=== PATIENT | female | born 1960 | race Caucasian/White ===

== ENCOUNTER 2017-04-08 08:55 | Outpatient (CLI) ==
[2015-10-15 19:54] VITALS: BMI 32.1
--- NOTE | 2017-04-10 20:38 | MRI ---
EXAM: Cervical spine MRI without contrast. HISTORY: Neck pain with radiculopathy. COMPARISON: Cervical spine radiographs 01/20/2008. TECHNIQUE: Multiplanar, multisequence MR images were acquired of the cervical spine without contrast . FINDINGS: The craniocervical junction is unremarkable. There is focal hyperintense T2 signal in the dorsal mid ivonne. The pituitary gland is small. The cervical cord has normal signal intensity. The re is straightening of the usual cervical lordosis and there is osteophytosis with disc space narrowi ng at C3-4 and osteophytosis with disc space narrowing, degenerative endplate changes at C4-5 and C5- 6. Reactive bright STIR signal edema is present along the endplates at C4-5 and C5-6. Posterior dis c space narrowing is present at C6-7. The cervical vertebra are generally normal in height and intri nsic bone marrow signal. Minor mucosal thickening is present in the sphenoid sinus. There is fatty infiltration of the parotid glands bilaterally. There are no paravertebral masses. C2-3: The intervertebral disc is normal. There is mild left hypertrophic facet arthropathy without foraminal stenosis. C3-4: There is a posterior disc osteophyte complex and small left paracentral disc protrusion that m inimally indents the cervical cord although cerebrospinal fluid is preserved around the cord. Bilate ral uncovertebral hypertrophy is present, greater on the left and there is mild bilateral facet arthr opathy. There is mild left neural foraminal stenosis. No central canal stenosis is present. C4-5: There is a posterior disc osteophyte complex and bilateral uncovertebral hypertrophy. This ca uses mild to moderate left and mild right neural foraminal stenosis. There is mild spinal stenosis. AP diameter of the thecal sac is 9 mm. C5-6: There is a posterior disc osteophyte complex that is more prominent in the midline which mildl y indents the cervical cord. Bilateral uncovertebral hypertrophy is present and there is mild spinal stenosis and mild to moderate left and moderate right neural foraminal stenosis. AP diameter of the thecal sac is 8.2 mm. C6-7: There is a mild posterior disc osteophyte complex and minor left uncovertebral hypertrophy. T his causes minor left foraminal stenosis. IMPRESSION: 1. Mild to moderate cervical degenerative spondylosis most significant at C4-5 and C5-6 where there is bright STIR signal edema along the endplates and mild spinal stenosis. 2. Multilevel foraminal stenosis. Cervical CT myelography may be helpful to further define the osse ous anatomy.
== END 2017-04-08 08:56 | disposition home or self-care (01) ==
LOC: RAD 08:55
PROVIDERS: ATTEND Family Medicine
DX: M54.2 Cervicalgia (principal)

== ENCOUNTER 2017-04-12 06:26 | Outpatient (CLI) ==
[2015-10-15 19:54] VITALS: BMI 32.1
[2017-04-12] MEDS ORDERED: ATROPINE SULFATE PFS ONE (07:00)
[2017-04-12] MEDS ORDERED: DOBUTAMINE 250 ML IV ONE (07:00)
--- NOTE | 2017-04-13 10:34 | DOBSTECHO ---
Ordering Physician: ESSENCE LUCIO Date of Test: 04/12/17 Reason for Examination: CHEST PAIN Current Medications: LOSARTAN, TRAMADOL, GABAPENTIN, DICLOFENAC, ALBUTEROL, LIPITOR Height: 70" Weight: 230 LBS Target Heart Rate: 140/165 ST Segment Stage Time HR BPM BP mmhg Rhythm +/- Up Down Comments/Symptoms Control Sitting 63 136/94 SR X NONE Dobutamine 250mg/D5W 5cmg/KG/mn 10cmg/KG/mn 3" 100 148/86 SR X NONE 15cmg/KG/mn 2" 112 144/82 SR X NONE 20cmg/KG/mn 2" 129 148/74 SR X NONE 25cmg/KG/mn 1:53 133 156/68 SR X NONE 30cmg/KG/mn 35cmg/KG/mn 40cmg/KG/mn Time: 4" HR B/P Time: 6" HR B/P Time: HR B/P Recovery 99 138/80 Recovery 85 Recovery Total Time: 8:53 Maximum Heart Rate Reached: 133 Interpretation: 1. NO EVIDENCE OF ISCHEMIA BY ST-T WAVE 2. NO CHEST PAIN OR DISCOMFORT 3. NORMAL LEFT VENTRICULAR CONTRACTILITY--RESTING AND WITH DOBUTAMINE INFUSION MTDD
--- NOTE | 2017-04-13 10:38 | ECHOSTRESS ---
Date of Exam: 04/12/17 Ordering Physician: ESSENCE LUCIO Reason for Echo: CHEST PAIN, DOBUTAMINE STRESS TEST--NO ISCHEMIA M-Mode Normal Adult Results LV Dimensions Normal Adult Results AoV Opening excursions >1.6 LVEDD-base- 3.5-5.8 Ao root dimensions 2.0-3.7 LVESD-base- 3.1-4.6 L. Atrium dimensions 1.9-3.8 Post. Wall thickness 0.8-1.1 IV septum (thickness) 0.7-1.2 Post. Wall excursion 0.72-1.3 Septal motion Systolic motion R. Ventricular cavity 1.5-2.0 LVEF 60% Paradoxical septal wall motion 2-D: NORMAL LEFT VENTRICULAR CONTRACTILITY--RESTING AND WITH DOBUTAMINE INFUSION M-MODE: MV: AV: TV: PV: CHAMBER SIZE: WALL MOTION: NORMAL LEFT VENTRICULAR CONTRACTILITY--RESTING AND WITH DOBUTAMINE INFUSION PERICARDIUM: INTERPRETATION: 1. NORMAL LEFT VENTRICULAR CONTRACTILITY--RESTING AND WITH DOBUTAMINE INFUSION MTDD
== END 2017-04-12 06:27 | disposition home or self-care (01) ==
LOC: CAR 06:26
PROVIDERS: ATTEND Family Medicine
DX: R07.9 Chest pain, unspecified (principal)

== ENCOUNTER 2017-12-09 12:52 | Emergency (ER) ==
[2017-12-09 13:10] VITALS: BP 183/102; TEMP 98.2; BMI 32.6
--- NOTE | 2017-12-09 13:21 | ED.PDOC ---
General ED Provider: Dr. LISA HECK Chief Complaint: Breast Pain Stated Complaint: RIGHT BREAST PAIN AND BLOODY DISCHARGE Time Seen by Physician: 13:12 (SEEN WITH MAY AT ALL TIMES ) Mode of Arrival: Walk-In Information Source: Patient Exam Limitations: No limitations Primary Care Provider: ESSENCE LUCIO Nursing and Triage Documentation Reviewed and Agree: Yes Does patient meet sepsis criteria?: No If yes, has appropriate treatment been initiated?: No System Inflammatory Response Syndrome: Not Applicable Sepsis Protocol: For patient's 13 years and over: Temp is 96.8 and below OR 101 and greater Pulse >90 BPM Resp >20/minute Acutely Altered Mental Status Are patient's symptoms suggestive of a new infection, such as: -Pneumonia -Skin, Soft Tissue -Endocarditis -UTI -Bone, Joint Infection -Implantable Device -Acute Abdominal Infection -Wound Infection -Meningitis -Blood Stream Catheter Infection -Unknown Miscellaneous Complaint Exam - Complex/Multi-System Complaint/Exam Onset/Duration: BREAST DISCHARGE X1 MONTH Symptoms Are: Still present Initial Severity: Mild Current Severity: None Associated Signs and Symptoms: Denies: Decreased responsiveness, Confusion, Agitation, Dizziness, Weakness, Syncope, Headache, Short of air, Cough, Wheezing , Hemoptysis, Chest pain, Palpitations, Edema, Nausea, Vomiting, Diarrhea, Abdominal pain, Back pain, Dysuria, Hematemesis, Melena, Decreased oral intake, Fever, Diaphoresis, Immunocompromised, Anticoagulation Therapy, Recent medication changes, Indwelling claim review medical director, Prior MRSA, Prior VRE, Recent trauma, Remote trauma Recent Echo/LV Function: No JVD Present: No Tachypnea Present: No Stridor Present: No Abdominal Findings: Present: Normal findings Glascow Coma Scale (see protocol): 15 Meningeal Signs Positive: No Focal Weakness: Present: None Focal Sensory Loss: Present: None Differential Diagnosis: Other (BREAST CANCER ) Review of Systems - Review Of Systems Constitutional: Reports: No symptoms Eyes: Reports: No symptoms Ears, Nose, Mouth, Throat: Reports: No symptoms Respiratory: Reports: No symptoms Cardiac: Reports: No symptoms GI: Reports: No symptoms : Reports: No symptoms Musculoskeletal: Reports: No symptoms Skin: Reports: Other (BLOODY DISCHARGE FROM RIGHT NIPPLE) Neurological: Reports: No symptoms Endocrine: Reports: No symptoms Hematologic/Lymphatic: Reports: No symptoms All Other Systems: Reviewed and Negative Past Medical History - Past Medical History Previously Healthy: Yes Endocrine: Reports: None Cardiovascular: Reports: Hypertension Respiratory: Reports: None Hematological: Reports: None Gastrointestinal: Reports: None Genitourinary: Reports: None Neuro/Psych: Reports: Depression Musculoskeletal: Reports: Back Pain, Other (neuropathy) Cancer: Reports: None Last Menstrual Period: NA - Surgical History General Surgical History: Reports: Back Surgery, Other (bilateral knee repairs) - Family History Family History: Reports: None - Social History Smoking Status: Never smoker Hx Substance Use: No Alcohol Screening: None - Immunizations Tetanus Shot up to Date: No Physical Exam - Physical Exam Appearance: Well-appearing, No pain distress, Well-nourished Eyes: FABIENNE, EOMI, Conjunctiva clear ENT: Ears normal, Nose normal, Oropharynx normal Respiratory: Airway patent, Breath sounds clear, Breath sounds equal, Respirations nonlabored Cardiovascular: RRR, Pulses normal, No rub, No murmur GI/: Soft, Nontender, No masses, Bowel sounds normal, No Organomegaly Musculoskeletal: Normal strength, ROM intact, No edema, No calf tenderness Skin: Warm, Dry, Normal color Neurological: Sensation intact, Motor intact, Reflexes intact, Cranial nerves intact, Alert, Oriented Psychiatric: Affect appropriate, Mood appropriate Critical Care Note - Critical Care Note Total Time (mins): 0 Course - Course Vital Signs: Temp Pulse Resp BP Pulse Ox 12/09/17 13:06 98.2 F 95 H 20 183/102 H 96 Departure - Departure Time of Disposition: 13:22 Disposition: HOME SELF-CARE Discharge Problem: Pain of breast Instructions: Nipple Discharge (ED) Condition: Good Pt referred to PMD for follow-up: Yes IPMP verified?: No Additional Instructions: Please call your Family Physician as soon as possible to schedule a follow-up appointment.you must have a mamogram as soon as possible Allergies/Adverse Reactions: Allergies acetaminophen [From Darvocet-N] Adverse Reaction (Verified 10/15/15 19:55) propoxyphene [From Darvocet-N] Adverse Reaction (Verified 10/15/15 19:55) Home Medications: Ambulatory Orders Albuterol Sulfate [Ventolin Hfa] 8 gm IH 3-4XD PRN 10/15/15 Eszopiclone [Lunesta] 1 mg PO BEDTIME PRN 10/15/15 Losartan Potassium [Cozaar] 50 mg PO DAILY 10/15/15 Tramadol HCl [Ultram] 50 mg PO TID PRN 10/15/15 Diclofenac Sodium 75 mg PO BID 12/09/17 Eszopiclone [Lunesta] 1 mg PO BEDTIME 12/09/17 Gabapentin 300 mg PO TID 12/09/17
== END 2017-12-09 13:41 | disposition home or self-care (01) ==
LOC: ED 12:52
DX: N64.4 Mastodynia (principal); N64.52 Nipple discharge; I10 Essential (primary) hypertension
CPT/HCPCS: 99282

== ENCOUNTER 2018-06-19 08:53 | Outpatient (RCR) | payer OTHER ==
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
--- NOTE | 2018-06-21 08:47 | RS.CXNS ---
Date of scheduled appointment: 06/21/18 Type: Cancel (Left message, possible reason due to inclement weather.)
== END 2018-06-22 23:59 | disposition short-term general hospital (02) ==
PROVIDERS: ATTEND Orthopaedic Surgery
DX: M25.562 Pain in left knee (principal); G89.29 Other chronic pain; R26.9 Unspecified abnormalities of gait and mobility; M62.81 Muscle weakness (generalized); M25.362 Other instability, left knee

== ENCOUNTER 2018-07-05 08:15 | Outpatient (RCR) ==
--- NOTE | 2018-06-23 09:53 | RS.OPPTDN ---
Subjective Date of Note: 06/23/18 Visit #: 2 Number of visits approved by Insurance: 3x4, Medicare Date of Evaluation: 06/19/18 Payer Source: MEDICARE Treatment Diagnosis: Left knee pain Current Subjective/complaints:: Patient says she continues to be tender at the L knee with "cracking" of the knee when she straightens it. She says she has tried HEP and feels she can lift her leg (SLR) better and without the help of the R. She says she will be going to [place] this summer and wants to get her leg stronger for all the walking and step climbing. 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, but unable to return to previous job due to her back surgery. *Precautions: LATEX ALLERGY Interventions - Exercise/Activities/Manual Therapy Exercises/Activities: Patient receives passive L HS and heel cord stretching x 3. She begins general strengthening including QS, SAQ (assisted and only to 5reps due to pain level and consistent crepitus), ball squeezes for isometric hip add, hip abd in hooklying with red latex free tband, DF with latex free red , hip abd with knee extended, 2x10. SLR 2x8. Patient sits at EOB for LAQ limited ranges, ham curls with latex free red tband 2x10. Standing at railing: hip abd, ham curls, heel raises x 12. Stationary bike forward and retro x 6 mins. Total minutes of Exercise: 38 Manual Therapy: NA HOME EXERCISE PROGRAM: quad sets, SLR (few reps each set), pillow squeeze for hip isometrics, and hip adduction/abduction with knee extended. - Charges Timed Code Treatment Minutes: 38 Total Treatment Time: 38 Procedures billed for this date of service:: ex3 Assessment: Patient maintains sensitivity to the L posterior knee and over the patella. She demo crepitus that is consistent and reproduces pain with SAQ. However, she is able to perform them easier at EOB maintaining limited motion to not cause repetitive crepitus. She is motivated to further strengthen the L knee with plans to travel to [place] this summer. All other therex jose without verbal c/o or obvious difficulty. Patient was encouraged to try ice to her knee tonight if exercises flared pain. Patient Education: Education of diagnosis, Body/Joint mechanics, Home Exercise Program, Education of Plan of Care Patient demonstrates compliance with HEP?: Yes Short Term Goals Goal #1: Pt independent and compliant in HEP Goal to be met by: 07/03/18 Progress towards Goal:: Progressing Goal #2: Left quads strength 3+/5. Goal to be met by: 07/03/18 Goal #3: Left HS strength 4+/5. Goal to be met by: 07/03/18 Goal #4: Pt to demonstrate understanding of joint mechanics & diagnosis. Goal to be met by: 07/03/18 Special Procedures Nurse Goals Goal #1: Pt knows HEP and to continue ex's to maintain level of function at D/C. Goal to be met by: 07/29/18 Goal #2: Score on LE functional scale improved to 52/80. Goal to be met by: 07/29/18 Goal #3: Pt will amb. community distances with min. knee pain and min. gt deviation. Goal to be met by: 07/29/18 Goal #4: Pt able to perform daily ADL's with minimal left knee pain. Goal to be met by: 07/29/18 Plan Dates of Senior Living Goals: 07/29/18 Expiration date of current Insurance Approval:: 07/29/18 PLAN: Patient to continue with strengthening to the L knee.
--- NOTE | 2018-06-27 11:37 | RS.OPPTDN ---
Subjective Date of Note: 06/27/18 Visit #: 3 Number of visits approved by Insurance: 3x4, Reassess at 10th Date of Evaluation: 06/19/18 Payer Source: MEDICARE Treatment Diagnosis: Left knee pain Current Subjective/complaints:: Patient says that she has been performing HEP and motivated about gaining strength and support. She says her knee feels "unstable" today. *Precautions: LATEX ALLERGY Interventions - Exercise/Activities/Manual Therapy Exercises/Activities: Patient receives passive L HS and heel cord stretching x 3. She begins general strengthening including QS, ball squeezes for isometric hip add, hip abd in hooklying with red latex free tband, DF with latex free red , hip abd with knee extended, 2x10. SLR 2x8. Patient sits at EOB for LAQ limited ranges x 4, ham curls with latex free red tband 2x10. Standing at railing: hip abd, ham curls,hip ext with 1 1/2#, heel raises x 12. Stationary bike unavailable. Total minutes of Exercise: 38 Manual Therapy: NA HOME EXERCISE PROGRAM: quad sets, SLR (few reps each set), pillow squeeze for hip isometrics, and hip adduction/abduction with knee extended. - Charges Timed Code Treatment Minutes: 38 Total Treatment Time: 38 Procedures billed for this date of service:: ex3 Assessment: Patient maintains difficulty with initiation of SAQ and has crepitus with doing so. SAQ was discontinued and was able to perform easier with LAQ. She is performing initial HEP, but continues to be very sensitive to light palpation surrounding the L knee (ant/post). All other therex jose without c/o's. Patient Education: Body/Joint mechanics, Home Exercise Program Patient demonstrates compliance with HEP?: Yes Short Term Goals Goal #1: Pt independent and compliant in HEP Goal to be met by: 07/03/18 Progress towards Goal:: Progressing Goal #2: Left quads strength 3+/5. Goal to be met by: 07/03/18 Goal #3: Left HS strength 4+/5. Goal to be met by: 07/03/18 Goal #4: Pt to demonstrate understanding of joint mechanics & diagnosis. Goal to be met by: 07/03/18 Company Laborer Goals Goal #1: Pt knows HEP and to continue ex's to maintain level of function at D/C. Goal to be met by: 07/29/18 Goal #2: Score on LE functional scale improved to 52/80. Goal to be met by: 07/29/18 Goal #3: Pt will amb. community distances with min. knee pain and min. gt deviation. Goal to be met by: 07/29/18 Goal #4: Pt able to perform daily ADL's with minimal left knee pain. Goal to be met by: 07/29/18 Plan Dates of Company Laborer Goals: 07/29/18 Expiration date of current Insurance Approval:: 07/29/18 PLAN: Continue progressive strengthening to the L LE.
--- NOTE | 2018-06-30 09:39 | RS.OPPTDN ---
Subjective Date of Note: 06/30/18 Visit #: 4 Number of visits approved by Insurance: 3x4, Reassess at 10th Date of Evaluation: 06/19/18 Payer Source: MEDICARE Treatment Diagnosis: Left knee pain Current Subjective/complaints:: Patient says her knee hurt so badly yesterday that she used a heating pad on it. Reports it ached constantly. States it is much better now. Reports she returns to MD next week. *Precautions: LATEX ALLERGY Interventions - Exercise/Activities/Manual Therapy Exercises/Activities: Patient receives passive L HS and heel cord stretching x 3. She continues with general strengthening including QS, ball squeezes for isometric hip add, hip abd in hooklying with red latex free tband, DF with latex free red, hip abd with knee extended, 2x10. SLR 2x10. Patient sits at EOB for LAQ limited ranges x 4, ham curls with latex free red tband 2x10. Standing at railing: hip abd, ham curls,hip ext with 1 1/2#, heel raises x 12. Stationary bike x 6 mins forward and retro. Total minutes of Exercise: 38 Manual Therapy: NA HOME EXERCISE PROGRAM: quad sets, SLR (few reps each set), pillow squeeze for hip isometrics, and hip adduction/abduction with knee extended. - Charges Timed Code Treatment Minutes: 38 Total Treatment Time: 38 Procedures billed for this date of service:: ex3 Assessment: Patient had increase in pain describing ache constantly yesterday probably due to consistent rain. Symptoms improved with heat and time. She is able to perform SLR with better form and control, but still unable to jose range from flexion to extension or SAQ. Patient Education: Body/Joint mechanics, Education of Plan of Care Patient demonstrates compliance with HEP?: Yes Short Term Goals Goal #1: Pt independent and compliant in HEP Goal to be met by: 07/03/18 Progress towards Goal:: Progressing Goal #2: Left quads strength 3+/5. Goal to be met by: 07/03/18 Goal #3: Left HS strength 4+/5. Goal to be met by: 07/03/18 Goal #4: Pt to demonstrate understanding of joint mechanics & diagnosis. Goal to be met by: 07/03/18 Senior Living Goals Goal #1: Pt knows HEP and to continue ex's to maintain level of function at D/C. Goal to be met by: 07/29/18 Goal #2: Score on LE functional scale improved to 52/80. Goal to be met by: 07/29/18 Goal #3: Pt will amb. community distances with min. knee pain and min. gt deviation. Goal to be met by: 07/29/18 Goal #4: Pt able to perform daily ADL's with minimal left knee pain. Goal to be met by: 07/29/18 Plan Dates of Hay Farmer Goals: 07/29/18 Expiration date of current Insurance Approval:: 07/29/18 PLAN: Continue with progressive strengthening.
--- NOTE | 2018-07-03 10:17 | RS.OPPTDN ---
Subjective Date of Note: 07/03/18 Visit #: 5 Number of visits approved by Insurance: Reassess at 10th Date of Evaluation: 06/19/18 Payer Source: MEDICARE Treatment Diagnosis: Left knee pain Current Subjective/complaints:: Patient c/o increased pain today she relates to the rain. She says she has felt and heard a lot of popping and intermittently feels like the patella is "turning out." She says this happens a lot and has for many years. She says she continues to work on HEP as she is able. Since pain is more today, she says she may not go into work. *Precautions: LATEX ALLERGY Pain Assessment - Pain Description Pain Location: elevated - Heat/Cryotherapy Treatment: Hot Pack (12 mins around the L knee in supine) Interventions - Exercise/Activities/Manual Therapy Exercises/Activities: Patient receives passive L HS and heel cord stretching x 3. She continues with general strengthening with increased rests including QS, hip abd in hooklying with red latex free tband, DF with latex free red, hip abd with knee extended, 2x10. SLR 2x10. Patient sits at EOB for ball squeezes. Standing at railing: hip abd, hip extension, ham curls,heel raises with 1 1/2# x 15. Stationary bike x 6 mins forward. Total minutes of Exercise: 31 Manual Therapy: NA HOME EXERCISE PROGRAM: quad sets, SLR (few reps each set), pillow squeeze for hip isometrics, and hip adduction/abduction with knee extended. - Charges Timed Code Treatment Minutes: 31 Total Treatment Time: 43 Procedures billed for this date of service:: hp, ex2 Assessment: Patient presents with increased pain and increased difficulty with amb. She grimaces more with all therex, but admits she wishes to continue to gain strength. She demo several episodes of popping to the L knee not producing pain during DF. Patient Education: Education of diagnosis, Body/Joint mechanics Patient demonstrates compliance with HEP?: Yes Short Term Goals Goal #1: Pt independent and compliant in HEP Goal to be met by: 07/03/18 Progress towards Goal:: Progressing Goal #2: Left quads strength 3+/5. Goal to be met by: 07/03/18 Goal #3: Left HS strength 4+/5. Goal to be met by: 07/03/18 Goal #4: Pt to demonstrate understanding of joint mechanics & diagnosis. Goal to be met by: 07/03/18 Bladder Tier Goals Goal #1: Pt knows HEP and to continue ex's to maintain level of function at D/C. Goal to be met by: 07/29/18 Goal #2: Score on LE functional scale improved to 52/80. Goal to be met by: 07/29/18 Goal #3: Pt will amb. community distances with min. knee pain and min. gt deviation. Goal to be met by: 07/29/18 Goal #4: Pt able to perform daily ADL's with minimal left knee pain. Goal to be met by: 07/29/18 Plan Dates of Group Home Goals: 07/29/18 Expiration date of current Insurance Approval:: 07/29/18 PLAN: Patient to continue to work on strengthening to the L knee modifying if needed
--- NOTE | 2018-07-05 10:46 | RS.OPPTDN ---
Subjective Date of Note: 07/05/18 Visit #: 6 Number of visits approved by Insurance: Reassess at 10th Date of Evaluation: 06/19/18 Payer Source: MEDICARE Treatment Diagnosis: Left knee pain Current Subjective/complaints:: "It's a good day for me today." She says she returns to the MD today and hopes to gain results from MRI. She says she has been able to perform HEP and jose therex here easier. *Precautions: LATEX ALLERGY Interventions - Exercise/Activities/Manual Therapy Exercises/Activities: Patient receives passive L HS and heel cord stretching x 3. She continues with general strengthening including QS, hip abd in hooklying with red latex free tband, DF with latex free red, hip abd with knee extended, 2x10. SLR 2x10. Limited range ham curls with red tband. Patient sits at EOB for ball squeezes. Standing at railing: hip abd, hip/flex extension, ham curls, heel raises with 2# x 15. Stationary bike x 7 mins forward. Total minutes of Exercise: 38 Manual Therapy: NA HOME EXERCISE PROGRAM: quad sets, SLR (few reps each set), pillow squeeze for hip isometrics, and hip adduction/abduction with knee extended. - Charges Timed Code Treatment Minutes: 38 Total Treatment Time: 38 Procedures billed for this date of service:: ex3 Assessment: Patient demo improved ease with all therex today, but particularly SLR and hip abd tolerated more repetitions and good quad control. She also was able to jose ham curls in standing and supine without the anticipated difficulty or pain. Patient Education: Body/Joint mechanics, Home Exercise Program Patient demonstrates compliance with HEP?: Yes Short Term Goals Goal #1: Pt independent and compliant in HEP Goal to be met by: 07/03/18 Progress towards Goal:: Progressing Goal #2: Left quads strength 3+/5. Goal to be met by: 07/03/18 Progress towards Goal:: Progressing Goal #3: Left HS strength 4+/5. Goal to be met by: 07/03/18 Progress towards Goal:: Progressing Goal #4: Pt to demonstrate understanding of joint mechanics & diagnosis. Goal to be met by: 07/03/18 Progress towards Goal:: Progressing Custodial Goals Goal #1: Pt knows HEP and to continue ex's to maintain level of function at D/C. Goal to be met by: 07/29/18 Goal #2: Score on LE functional scale improved to 52/80. Goal to be met by: 07/29/18 Goal #3: Pt will amb. community distances with min. knee pain and min. gt deviation. Goal to be met by: 07/29/18 Goal #4: Pt able to perform daily ADL's with minimal left knee pain. Goal to be met by: 07/29/18 Plan Dates of Administration Professional Goals: 07/29/18 Expiration date of current Insurance Approval:: 07/29/18 PLAN: Attend MD follow up today and continue TIW for progressive strengthening to the L LE.
--- NOTE | 2018-07-06 09:11 | RS.CSNOTE ---
PT Case Note Date of Note: 07/05/18 Title of document: CASE NOTE Note: Patient calls us saying she will be having surgery for her L knee. States she just left her MD appt and wishes us to discharge her at this time.
== END 2018-07-20 23:59 ==
PROVIDERS: ATTEND Orthopaedic Surgery
DX: M25.562 Pain in left knee (principal)

== ENCOUNTER 2018-10-20 14:00 | Outpatient (RCR) ==
[2018-08-17 21:57] VITALS: BMI 35.6
--- NOTE | 2018-10-18 11:10 | RS.OPPTEV2 ---
Date of Note: 10/18/18 Visit #: 1 Number of visits approved by Insurance: n/a Date of Evaluation: 10/18/18 Payer Source: MEDICARE Date of Onset/Injury/Change in Status: 08/04/18 (LTKR(1st surgery)) Surgery Performed?: Yes Treatment Diagnosis: L knee pain, aftercare following TKR on L knee History of Condition/Mechanism of Injury:: pt underwent L TKR on 08/04/18 came to [facility] for swing bed and then had to return to get hematoma drained, pt continued with pain and instability and was then transferred back to [facility] and underwent a revision to L TKR. Prior Level of Function.....Patient was independent with: ADL's, Self Care, Ambulation/Mobility, Community Integration/Access Level of Function: prior to initial surgery in 07/2018 pt amb independently occasionally using cane. 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 pt was independent with cooking, etc. pt now states she cannot stand long enough to cook due to pain. Functional Limitations: Standing, Bending, Squatting, Ambulation, Community Access/Integration Current Subjective/complaints:: pt states that she is anxious to get back to normal activities. States she has been doing a few ex that home health PT gave her. She states home health only came a couple of times. 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 Pain Assessment - Pain Description Pain Location: L knee Pain Description: Aching Current Pain Intensity: 4-5/10 Functional Outcome Measure LE Functional Scale: 18 - G Codes & Severity Modifier G Codes & Modifier: n/a Source of G Code score: n/a Observation - Observation Posture: Forward Head, Rounded Shoulders, Increased Thoracic Kyphosis Handedness: Right Girth Measurement Lower: LLE knee 47.2cm, 10 cm above knee 49cm, 10 cm below knee 43.5cm. RLE knee 43cm, 10cm above knee 48 cm, 10 cm below knee 42cm Gait - Gait Pattern Gait Comments: pt amb with antalgic gait with decreased heel strike/ toe off gait pattern, with flexed posture, decreased stance time on LLE. General Range of Motion: BUE WFL's. RLE WFL's. LLE hip and ankle WFL's Muscle Strength: BUE 5/5, RLE 4+/5,. LLE hip flex 4/5, ankle 4/5 Knee ROM: Right WFL's - Left Knee ROM Left Knee Extension: -22 Left Knee Flexion: 80 (AROM) Knee ROM Limitations: Soft Tissue Tightness, Muscle Weakness, Pain Comments: AAROM: flex 83 ext -17 - Left Knee Strength Left Knee Extension: 3- Fair- Left Knee Flexion: 3- Fair- - Right Knee Strength Right Knee Extension: 4 Good Right Knee Flexion: 4 Good - Special Tests Comments: pt is aprehensive with any palpation of B knees. Palpation Palpation Findings: Tenderness Comments:: area of L patella Sensation - Sensation Right Upper Extremity: Intact/Normal Left Upper Extremity: Intact/Normal Right Lower Extremity: Intact/Normal Left Lower Extremity: Impaired Comments: n/t in area of L knee Balance - Sitting Balance Static Sitting Balance: Normal Dynamic Sitting Balance: Normal - Standing Balance Static Standing Balance: Good Dynamic Standing Balance: Fair Interventions - Exercise/Activities/Manual Therapy Exercises/Activities: pt performed QS, HS, SAQ, SLR, SLR (3 way), LAQ, pt also received hamstring stretch Manual Therapy: NA HOME EXERCISE PROGRAM: pt given written HEP including QS with heel elevated, SAQ , LAQ, SLR (3 way) - Charges Timed Code Treatment Minutes: 49 Total Treatment Time: 51 Procedures billed for this date of service:: eval med, ex EVALUATION COMPLEXITY LEVEL EVALUATION COMPLEXITY LEVEL: HISTORY: Medium (HTN, OA, TKR, ), EXAM OF BODY SYSTEMS: Medium (pain, ROM, strength, balance, gait,), CLINICAL PRESENTATION: Medium, CLINICAL DECISION MAKING: Medium Assessment Assessment: pt presents with L knee pain, decreased ROM L knee, decreased strength, as well as gait ability. Feel pt would benefit from skilled PT for therex for ROM, strengthening, balance activities as well as gait training to improve functional mobility. Patient Education: Home Exercise Program, Education of Plan of Care Rehab Potential: Good Short Term Goals Goal #1: pt independent with initial HEP Goal to be met by: 10/27/18 Goal #2: Improve L knee ROM flex 90 ext -10 AAROM Goal to be met by: 10/27/18 Goal #3: Decrease edema L knee Goal to be met by: 10/27/18 Goal #4: pt amb from car to dept with cane with no LOB Goal to be met by: 10/27/18 Food Cashier Goals Goal #1: pt amb in dept without AD with no LOB with improved sequencing Goal to be met by: 11/03/18 Goal #2: Improve L knee ROM flex 98 ext -5 Goal to be met by: 11/03/18 Goal #3: pt report that she is able to stand long enough to cook a meal. Goal to be met by: 11/03/18 Plan - Treatment to be Provided Procedures: Therapeutic Exercises, Therapeutic Activity, Gait Training, Patient Education Modalities: Electrical Stimulation, Cryotherapy, Hot Packs Other:: *Modalities if necessary. Primary focus on exercises. - Treatment Plan Frequency: 3 X week Duration: 3 weeks Dates of Food Cashier Goals: 11/03/18 Expiration date of current Insurance Approval:: n/a - Treatment Code (1) Aftercare following knee joint replacement surgery Code(s): Z47.1 - AFTERCARE FOLLOWING JOINT REPLACEMENT SURGERY; Z96.659 - PRESENCE OF UNSPECIFIED ARTIFICIAL KNEE JOINT Qualifiers: Laterality: left Qualified Code(s): Z47.1 - Aftercare following joint replacement surgery; Z96.652 - Presence of left artificial knee joint (2) Muscle weakness Code(s): M62.81 - MUSCLE WEAKNESS (GENERALIZED) (3) Joint stiffness Code(s): M25.60 - STIFFNESS OF UNSPECIFIED JOINT, NOT ELSEWHERE CLASSIFIED (4) Gait abnormality Code(s): R26.9 - UNSPECIFIED ABNORMALITIES OF GAIT AND MOBILITY (5) Knee pain Code(s): M25.569 - PAIN IN UNSPECIFIED KNEE Qualifiers: Chronicity: chronic Laterality: left Qualified Code(s): M25.562 - Pain in left knee; G89.29 - Other chronic pain
--- NOTE | 2018-10-19 15:04 | RS.OPPTDN ---
Subjective Date of Note: 10/19/18 Visit #: 2 Number of visits approved by Insurance: na Date of Evaluation: 10/18/18 Payer Source: MEDICARE Treatment Diagnosis: L knee pain, aftercare following TKR on L knee Current Subjective/complaints:: Patient feels the rainy weather has made the knee feel tighter today,but is motivated to improve ,doing her HEP. *Precautions: LATEX ALLERGY Pain Assessment - Pain Description Pain Location: L knee Pain Description: Tightness, Dull, Aching Current Pain Intensity: 4-5/10 Interventions - Exercise/Activities/Manual Therapy Exercises/Activities: 45 mins. total of L TKA protocol beginning with ankle pumps,QS SLR's ,heelslides ,LAQ's.Grade I AP mobs.Passive flexion 83-85 ,active flexion is 80 in sitting.Active extension doing quad set is -8 degrees,-15 degrees with SAQ's. Total minutes of Exercise: 45 Manual Therapy: NA Total minutes of Manual Therapy: 0 HOME EXERCISE PROGRAM: pt given written HEP including QS with heel elevated, SAQ , LAQ, SLR (3 way) - Charges Timed Code Treatment Minutes: 45 Total Treatment Time: 45 Procedures billed for this date of service:: ex 3 Assessment: Patient progressing ,has improved motion as exercises progress.She has moderate warmth and edema present.The flexion has soft end feel.She is attentive and motivated to improve ,mentions wanting to be able to ride a bike in community again. Patient Education: Home Exercise Program, Education of Plan of Care Patient demonstrates compliance with HEP?: Yes Short Term Goals Goal #1: pt independent with initial HEP Goal to be met by: 10/27/18 Progress towards Goal:: Progressing Goal #2: Improve L knee ROM flex 90 ext -10 AAROM Goal to be met by: 10/27/18 Progress towards Goal:: Progressing Goal #3: Decrease edema L knee Goal to be met by: 10/27/18 Goal #4: pt amb from car to dept with cane with no LOB Goal to be met by: 10/27/18 Intermediate Goals Goal #1: pt amb in dept without AD with no LOB with improved sequencing Goal to be met by: 11/03/18 Goal #2: Improve L knee ROM flex 98 ext -5 Goal to be met by: 11/03/18 Goal #3: pt report that she is able to stand long enough to cook a meal. Goal to be met by: 11/03/18 Progress towards goal: Regressing Plan Dates of Intermediate Goals: 11/03/18 Expiration date of current Insurance Approval:: na PLAN: Cont. PT to maximize strength and motion in the L knee for safe ADL's.
--- NOTE | 2018-10-20 15:15 | RS.OPPTDN ---
Subjective Date of Note: 10/20/18 Visit #: 3 Number of visits approved by Insurance: na Date of Evaluation: 10/18/18 Payer Source: MEDICARE Treatment Diagnosis: L knee pain, aftercare following TKR on L knee Current Subjective/complaints:: Patient reports using ice frequently at home , and is doing her exercises. *Precautions: LATEX ALLERGY Pain Assessment - Pain Description Pain Location: L knee Pain Description: Tightness, Dull, Aching, Chronic Current Pain Intensity: 4/10 Interventions - Exercise/Activities/Manual Therapy Exercises/Activities: 45 mins. total of L TKA protocol beginning with ankle pumps,QS ,SAQ's with 1.5 # SLR's ,heelslides ,LAQ's.Grade I AP mobs.Passive flexion 83-85 ,active flexion is 85 in sitting.Active extension doing quad set is -8 degrees,-15 degrees with SAQ's. Total minutes of Exercise: 45 Manual Therapy: NA Total minutes of Manual Therapy: 0 HOME EXERCISE PROGRAM: pt given written HEP including QS with heel elevated, SAQ , LAQ, SLR (3 way) - Charges Timed Code Treatment Minutes: 45 Total Treatment Time: 45 Procedures billed for this date of service:: ex 3 Assessment: Patient has improved active flexion today ,gained 5 degrees ,with soft end feel.She consistently muscle guards with flexion past 85 due to pain.He rpassive extension is also better,active extension with quad set or with SAQ is the same as yesterday.She has good rehab potential,as the edema is a limiting factor for motion at this time.She is compliant to using ice at home. Patient Education: Education of diagnosis, Body/Joint mechanics, Home Exercise Program, Home Safety, Activity Modification, Education of Plan of Care Patient demonstrates compliance with HEP?: Yes Short Term Goals Goal #1: pt independent with initial HEP Goal to be met by: 10/27/18 Progress towards Goal:: Progressing Goal #2: Improve L knee ROM flex 90 ext -10 AAROM Goal to be met by: 10/27/18 Progress towards Goal:: Progressing Goal #3: Decrease edema L knee Goal to be met by: 10/27/18 Progress towards Goal:: No Change Goal #4: pt amb from car to dept with cane with no LOB Goal to be met by: 10/27/18 Document Controller Goals Goal #1: pt amb in dept without AD with no LOB with improved sequencing Goal to be met by: 11/03/18 Goal #2: Improve L knee ROM flex 98 ext -5 Goal to be met by: 11/03/18 Goal #3: pt report that she is able to stand long enough to cook a meal. Goal to be met by: 11/03/18 Plan Dates of Document Controller Goals: 11/03/18 Expiration date of current Insurance Approval:: na PLAN: Cont. skilled PT to strengthen the L LE ,elimiate /reduce knee pain with all ADL's.
== END 2018-10-20 23:59 ==
PROVIDERS: ATTEND Orthopaedic Surgery
DX: M25.562 Pain in left knee (principal)

== ENCOUNTER 2019-01-03 16:27 | Emergency (ER) ==
[2019-01-03 16:33] VITALS: BP 149/75; TEMP 99.1; BMI 31.8
== END 2019-01-03 16:59 | disposition left against medical advice (07) ==
LOC: ED 16:27
DX: T63.461A Toxic effect of venom of wasps, accidental (unintentional), initial encounter (principal)